=== PATIENT | female | born 2005 | race Two or more races ===

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

== ENCOUNTER 2023-02-12 08:00 | Outpatient (CLI) | payer OTHER ==
[2023-02-12 19:35] LABS: BACTERIAL VAGINOSIS DNA NEGATIVE (NEGATIVE); CANDIDA GROUP DNA NEGATIVE (NEGATIVE); CANDIDA KRUSEI DNA NEGATIVE (NEGATIVE); TRICHOMONAS VAGINALIS DNA NEGATIVE (NEGATIVE)
[2023-02-12 19:36] LABS: CANDIDA GLABRATA DNA NEGATIVE (NEGATIVE)
[2023-02-12 21:35] LABS: CHLAMYDIA TRACHOMATIS DNA NEGATIVE (NEGATIVE); NEISSERIA GONORRHOEAE DNA NEGATIVE (NEGATIVE)
== END 2023-02-12 23:59 | disposition home or self-care (01) ==
LOC: LAB.WC 08:00
PROVIDERS: ATTEND Obstetrics & Gynecology
DX: N89.8 Other specified noninflammatory disorders of vagina (principal); Z11.3 Encounter for screening for infections with a predominantly sexual mode of transmission
CPT/HCPCS: 81514; 87491; 87591; 87661

== ENCOUNTER 2023-07-14 07:18 | Outpatient (CLI) | payer OTHER ==
[2023-07-14 12:20] LABS: BASOPHILS # (AUTO) 0.1 10^3/uL (0.0-0.1); BASOPHILS % (AUTO) 0.9 %; EOSINOPHILS # (AUTO) 0.4 10^3/uL (0.0-0.7); EOSINOPHILS % (AUTO) 5.7 %; HCT - HEMATOCRIT 41.9 % (37.0-47.0); HGB - HEMOGLOBIN 14.1 g/dL (12.0-16.0); LYMPHOCYTES # (AUTO) 1.9 10^3/uL (1.5-3.5); LYMPHOCYTES % (AUTO) 27.8 %; MEAN CORPUSCULAR HEMOGLOBIN 30.5 pg (27.0-31.0); MEAN CORPUSCULAR HGB CONC 33.7 g/dL (32.0-36.0); MEAN CORPUSCULAR VOLUME 90.5 fL (81.0-99.0); MEAN PLATELET VOLUME 10.3 fL (7.9-10.8); MONOCYTES # (AUTO) 0.7 10^3/uL (0.0-1.0); MONOCYTES % (AUTO) 10.8 %; NEUTROPHILS # (AUTO) 3.7 10^3/uL (1.5-6.6); NEUTROPHILS % (AUTO) 54.5 %; PLT - PLATELET COUNT 265 10^3/uL (130-450); RED BLOOD COUNT 4.63 10^6/uL (4.20-5.40); RED CELL DISTRIBUTION WIDTH 12.1 % (12.0-15.0); WHITE BLOOD COUNT 6.8 x10^3/uL (4.8-10.8)
[2023-07-14 12:32] LABS: ALBUMIN 4.3 g/dL (3.2-5.5); ALBUMIN/GLOBULIN RATIO 1.7 (1.0-2.2); BILIRUBIN,TOTAL 0.4 mg/dL (0.2-1.0); CALCIUM 9.4 mg/dL (8.5-10.3); CREATININE 0.8 mg/dL (0.6-1.3); TOTAL PROTEIN 6.8 g/dL (6.4-8.9)
[2023-07-14 12:46] LABS: THYROID STIMULATING HORMONE 2.91 uIU/mL (0.34-5.60)
== END 2023-07-14 07:19 | disposition home or self-care (01) ==
LOC: LAB.N 07:18
PROVIDERS: ATTEND Physician Assistant
DX: Z13.9 Encounter for screening, unspecified (principal)
CPT/HCPCS: 36415; 80053; 84443; 85025

== ENCOUNTER 2024-03-17 08:58 | Emergency (ER) | payer BC, OTHER ==
--- NOTE | 2024-03-17 09:17 | ED Physician Documentation ---
PD HPI CHEST PAIN - Stated complaint Stated Complaint: ABD PX - Chief complaint Chief Complaint: Resp - History obtained from History obtained from: Patient - History of Present Illness Timing - onset: How many days ago (3-4) Timing - onset during: Light activity Timing - duration: Days (3-4) Timing - details: Gradual onset, Still present Quality: Aching, Sharp, Pain Location: Left chest, Right chest Radiation: No: Back, Abdominal Improved by: Rest, Other medication (Tylenol temporarily improves pain but not resolves and back when med wears off.) Worsened by: Inspiration, Movement Associated symptoms: Shortness of air, Nausea. No: Vomiting Similar symptoms before: Has not had sx before Recently seen: Not recently seen Review of Systems Constitutional: reports: Chills, Myalgias. denies: Fever Nose: reports: Congestion Throat: reports: Sore throat (mild for 1-2 days) Cardiac: reports: Chest pain / pressure Respiratory: reports: Dyspnea (feels cannot get full deep breath.), Cough. denies: Wheezing PD PAST MEDICAL HISTORY - Past Medical History Past Medical History: No - Past Surgical History Past Surgical History: No - Present Medications Home Medications: Ambulatory Orders Medication Instructions Recorded Confirmed ceFIXime [Suprax] 400 mg PO DAILY #7 capsule 02/13/14 Albuterol Sulf [Ventolin Hfa 1 - 2 puffs INH QID #1 each 03/17/24 Inhaler] Naproxen 500 mg PO BID #20 tab 03/17/24 Ondansetron Odt [Zofran] 4 mg TL Q6H PRN #10 tablet 03/17/24 - Allergies Allergies/Adverse Reactions: Allergies Allergy/AdvReac Type Severity Reaction Status Date / Time Sulfa (Sulfonamide Allergy Rash Verified 03/17/24 09:11 Antibiotics) - Social History Does the pt smoke?: No Smoking Status: Current some day smoker Does the pt drink ETOH?: No Does the pt have substance abuse?: No - Immunizations Immunizations are current?: Yes - POLST Patient has POLST: No PD ED PE NORMAL - Vitals Vital signs reviewed: Yes - General General: Alert and oriented X 3, Well developed/nourished - HEENT HEENT: Ears normal, Moist mucous membranes, Pharynx benign - Neck Neck: Supple, no meningeal sign, No adenopathy - Cardiac Cardiac: RRR, No murmur - Respiratory Respiratory: No: Clear bilaterally (moderate tidal volume due to discomfort. There is chest wall tenderness right parasternal chest without redness/ rash/ sores. ) - Abdomen Abdomen: Soft, Non tender - Derm Derm: Normal color, Warm and dry - Extremities Extremities: No edema, No calf tenderness / cord - Neuro Neuro: Alert and oriented X 3, No motor deficit, Normal speech Results - Vitals Vitals: Vital Signs - 24 hr 03/17/24 03/17/24 03/17/24 09:08 09:58 10:14 Temperature 36.8 C Heart Rate 96 95 99 Respiratory 20 16 20 Rate Blood Pressure 141/81 H 121/85 H O2 Saturation 98 100 Oxygen O2 Source Room air - Rads (name of study) t xray Relevant Findings:: Prelim report reviewed, EMP independent interpretation of test (no acute process) PD Medical Decision Making - ED course Complexity details: reviewed results (chest xray without acute findings. No PTX, effusion nor infiltrates. Has viral types symptoms developing nowk, so presume precursor inflammatory response to early infectious process. ), considered differential (feeling everish and achy, muscles feeling weak fo 1-2 days. Had had chest pain a day or two prior to that onset. Minimal cough. ), d/w patient Departure - Departure Disposition: 01 Home, Self Care Clinical Impression: Chest pain, Acute viral syndrome Condition: Stable Record reviewed to determine appropriate education?: Yes Prescriptions: Naproxen 500 mg PO BID #20 tab Albuterol Sulf [Ventolin Hfa Inhaler] 1 - 2 puffs INH QID #1 each Ondansetron Odt [Zofran] 4 mg TL Q6H PRN #10 tablet PRN Reason: Nausea / Vomiting Comments: Your chest x-ray appears clear without any signs of pneumonia, collapsed lung, fluid around the lung. Your oxygenation level is good. Heart rate is slightly fast for resting rate but still within normal. I presume the pain you are having in the chest is some inflammatory condition related to viral illness. You could be just musculoskeletal pain as well from camping. The body aches and fevers certainly would be from developing illness. At this point I would presume a viral illness. No signs of pneumonia on your x-ray. Your throat does not look strep like at this time. See how you do over the next few days. Use a combination of the albuterol inhaler to help with breathing, naproxen anti-inflammatory and ondansetron for nausea. Stay well-hydrated otherwise. I sent your prescriptions to your preferred pharmacy. I would anticipate improvement over the next few days. Add Tylenol 500 to 650 mg every 4-6 hours if needed for pain as well. Forms: PCP List Discharge Date/Time: 03/17/24 10:18
[2024-03-17] MEDS: NAPROXEN 250 MG TABLET PO STA (09:51)
[2024-03-17] MEDS: ONDANSETRON ODT 4 MG TABLET TL STA (09:51)
--- NOTE | 2024-03-17 09:55 | XRAY Report ---
PROCEDURE: Chest 1V INDICATIONS: chest pain TECHNIQUE: One view of the chest was acquired. COMPARISON: None. FINDINGS: Surgical changes and devices: None. Lungs and pleura: No pleural effusions or pneumothorax. Lungs are clear. Mediastinum: Mediastinal contours appear normal. Heart size is normal. Bones and chest wall: No suspicious bony lesions. Overlying soft tissues appear unremarkable. IMPRESSION: No acute cardiopulmonary process. Reviewed by: Pancho Swartz MD on 03/17/2024 9:54 AM PDT Approved by: Pancho Swartz MD on 03/17/2024 9:54 AM PDT Station ID: [id number]
[2024-03-17] MEDS: ALBUTEROL 1 PUFF INH STA (09:58)
[2024-03-17 10:31] VITALS: BP 121/85; O2SAT 100
== END 2024-03-17 10:18 | disposition home or self-care (01) ==
LOC: ED 08:58
DX: B34.9 Viral infection, unspecified (principal); R07.9 Chest pain, unspecified; F17.200 Nicotine dependence, unspecified, uncomplicated
CPT/HCPCS: 71045; 94640; 94664; 99283; 99284; A9270; Q0162